=== PATIENT | female | born 1970 | race Caucasian/White ===

== ENCOUNTER 2016-04-24 11:36 | Day surgery (SDC) | payer BC ==
[2016-04-24] MEDS ORDERED: EPINEPHrine/PF 1 MG/1 ML (1:1,000) AMPULE IV ONE (12:00)
[2016-04-24] MEDS ORDERED: diphenhydrAMINE HCL 25 MG CAPSULE (FP) PO ONE (12:00)
[2016-04-24] MEDS ORDERED: ACETAMINOPHEN 325 MG TABLET (FP) PO ONE (12:00)
[2016-04-24] MEDS ORDERED: methylPREDNISolone NA SUCC 40 MG/1 ML VIAL IVPB ONE (12:00)
[2016-04-24 12:08] LABS: BASOPHIL 1.1 % (0-2.0); EOSINOPHIL 1.4 % (0-4.5); MCH 27.6 pg (25.7-33.7); MCHC 33.3 g/dl (32.0-36.0); MEAN CELL VOLUME 82.9 fl (80-96); MEAN PLT VOLUME 7.5 fl (7.5-11.1); NEUTROPHILS 50.4 % (42.8-82.8); PLATELET COUNT 382 K/MM3 (134-434); RDW 13.2 % (11.6-15.6); WHITE BLOOD COUNT 11.1 K/mm3 (4.0-10.0)
[2016-04-24] MEDS ORDERED: ACETAMINOPHEN 325 MG TABLET (FP) ONE (12:08)
[2016-04-24] MEDS ORDERED: EPINEPHrine/PF 1 MG/1 ML (1:1,000) AMPULE ONE (12:09)
[2016-04-24] MEDS ORDERED: methylPREDNISolone NA SUCC 40 MG/1 ML VIAL ONE (12:10)
[2016-04-24 12:29] VITALS: BMI 34.2
[2016-04-24] MEDS ORDERED: SODIUM CHLORIDE IVPB ONE (12:30)
[2016-04-24] MEDS ORDERED: INFLIXIMAB IVPB ONE (12:30)
[2016-04-24 12:45] LABS: C-REACTIVE PROTEIN 2.1 MG/DL (0.00-0.3); CALCIUM 9.6 mg/dL (8.5-10.1); CREATININE 0.9 mg/dL (0.55-1.02)
[2016-04-24 14:57] VITALS: TEMP 98.2
[2016-04-24 15:58] VITALS: BP 160/86; PULSE 84
== END 2016-04-24 15:58 | disposition home or self-care (01) ==
LOC: JINFUSION 11:36
PROVIDERS: ATTEND Internal Medicine Gastroenterology
DX: K51.90 Ulcerative colitis, unspecified, without complications (principal)
CPT/HCPCS: 96413; 96415; J1745; 36415; 80048; 85025; 86140

== ENCOUNTER 2016-06-26 08:28 | Day surgery (SDC) | payer BC ==
[2016-06-26 08:50] LABS: BASOPHIL 0.6 % (0-2.0); EOSINOPHIL 1.3 % (0-4.5); MCH 27.2 pg (25.7-33.7); MCHC 32.8 g/dl (32.0-36.0); MEAN CELL VOLUME 83.1 fl (80-96); MEAN PLT VOLUME 7.6 fl (7.5-11.1); NEUTROPHILS 47.3 % (42.8-82.8); PLATELET COUNT 349 K/MM3 (134-434); RDW 13.9 % (11.6-15.6); WHITE BLOOD COUNT 9.5 K/mm3 (4.0-10.0)
[2016-06-26] MEDS ORDERED: ACETAMINOPHEN 500 MG TABLET (FP) ONE (08:52)
[2016-06-26] MEDS ORDERED: diphenhydrAMINE HCL 25 MG CAPSULE (FP) PO ONE ×2 (08:52→09:15)
[2016-06-26] MEDS ORDERED: EPINEPHrine/PF 1 MG/1 ML (1:1,000) AMPULE IV PRN (09:08)
[2016-06-26] MEDS ORDERED: methylPREDNISolone NA SUCC 40 MG/1 ML VIAL IVPB PRN (09:09)
[2016-06-26] MEDS ORDERED: ACETAMINOPHEN 500 MG TABLET (FP) PO ONE (09:15)
[2016-06-26 09:16] LABS: CALCIUM 9.7 mg/dL (8.5-10.1); COCKROFT - GAULT 122.825; CREATININE 0.9 mg/dL (0.55-1.02)
[2016-06-26] MEDS ORDERED: SODIUM CHLORIDE IVPB ONE (09:45)
[2016-06-26] MEDS ORDERED: INFLIXIMAB IVPB ONE (09:45)
[2016-06-26 11:42] VITALS: TEMP 97.9
[2016-06-26 12:15] VITALS: BP 130/90; PULSE 86
== END 2016-06-26 12:15 | disposition home or self-care (01) ==
LOC: JCHEMO 08:28
PROVIDERS: ATTEND Internal Medicine Gastroenterology
DX: K51.90 Ulcerative colitis, unspecified, without complications (principal)
CPT/HCPCS: 96413; 96415; J1745; 36415; 80048; 85025; 86140

== ENCOUNTER 2016-08-27 08:35 | Day surgery (SDC) | payer BC ==
[~2016-08-27 08:35] MED LIST: SODIUM CHLORIDE 250 ML IV ONE
[2016-08-27] MEDS ORDERED: diphenhydrAMINE HCL 25 MG CAPSULE (FP) PO ONE ×2 (08:57→09:00)
[2016-08-27] MEDS ORDERED: ACETAMINOPHEN 500 MG TABLET (FP) ONE (08:57)
[2016-08-27] MEDS ORDERED: ACETAMINOPHEN 500 MG TABLET (FP) PO ONE (09:00)
[2016-08-27] MEDS ORDERED: EPINEPHrine/PF 1 MG/1 ML (1:1,000) AMPULE IV PRN (09:06)
[2016-08-27] MEDS ORDERED: methylPREDNISolone NA SUCC 40 MG/1 ML VIAL IVPB PRN (09:07)
[2016-08-27 09:08] LABS: BASOPHIL 0.7 % (0-2.0); EOSINOPHIL 1.6 % (0-4.5); MCH 28.4 pg (25.7-33.7); MCHC 33.7 g/dl (32.0-36.0); MEAN CELL VOLUME 84.3 fl (80-96); MEAN PLT VOLUME 7.9 fl (7.5-11.1); NEUTROPHILS 46.2 % (42.8-82.8); PLATELET COUNT 299 K/MM3 (134-434); RDW 13.5 % (11.6-15.6); WHITE BLOOD COUNT 8.7 K/mm3 (4.0-10.0)
[2016-08-27] MEDS ORDERED: SODIUM CHLORIDE IVPB ONE (09:30)
[2016-08-27] MEDS ORDERED: INFLIXIMAB IVPB ONE (09:30)
[2016-08-27 09:37] LABS: ANION GAP 8 (8-16); CALCIUM 9.5 mg/dL (8.5-10.1); CO2 29 mmol/L (21-32); CREATININE 0.9 mg/dL (0.55-1.02); GLUCOSE,RANDOM 101 mg/dL (74-106)
[2016-08-27 09:50] LABS: C-REACTIVE PROTEIN 2.3 MG/DL (0.00-0.3)
[2016-08-27 14:24] VITALS: BP 125/87; PULSE 83; TEMP 97.8
== END 2016-08-27 12:42 | disposition home or self-care (01) ==
LOC: JCHEMO 08:35
PROVIDERS: ATTEND Internal Medicine Gastroenterology
DX: K51.90 Ulcerative colitis, unspecified, without complications (principal)
CPT/HCPCS: 96413; 96415; J1745; 36415; 80048; 84703; 85025; 86140

== ENCOUNTER 2016-10-16 08:34 | Day surgery (SDC) | payer BC ==
[2016-10-16 08:58] LABS: BASOPHIL 0.6 % (0-2.0); EOSINOPHIL 1.7 % (0-4.5); MCH 28.3 pg (25.7-33.7); MCHC 33.6 g/dl (32.0-36.0); MEAN CELL VOLUME 84.4 fl (80-96); MEAN PLT VOLUME 7.8 fl (7.5-11.1); NEUTROPHILS 43.9 % (42.8-82.8); PLATELET COUNT 373 K/MM3 (134-434); RDW 13.6 % (11.6-15.6); WHITE BLOOD COUNT 9.1 K/mm3 (4.0-10.0)
[2016-10-16 09:15] LABS: ANION GAP 7 (8-16); CALCIUM 9.7 mg/dL (8.5-10.1); CO2 26 mmol/L (21-32); CREATININE 0.9 mg/dL (0.55-1.02); GLUCOSE,RANDOM 104 mg/dL (74-106)
[2016-10-16] MEDS ORDERED: EPINEPHrine/PF 1 MG/1 ML (1:1,000) AMPULE IV ONE (09:15)
[2016-10-16] MEDS ORDERED: methylPREDNISolone NA SUCC 40 MG/1 ML VIAL IVPB ONE (09:15)
[2016-10-16] MEDS ORDERED: diphenhydrAMINE HCL 25 MG CAPSULE (FP) PO ONE ×2 (09:15→09:30)
[2016-10-16] MEDS ORDERED: SODIUM CHLORIDE 250 ML IV ONE (09:15)
[2016-10-16] MEDS ORDERED: ACETAMINOPHEN 325 MG TABLET (FP) ONE (09:16)
[2016-10-16 09:26] LABS: C-REACTIVE PROTEIN 2.1 MG/DL (0.00-0.3)
[2016-10-16] MEDS ORDERED: ACETAMINOPHEN 325 MG TABLET (FP) PO ONE (09:30)
[2016-10-16] MEDS ORDERED: SODIUM CHLORIDE IVPB ONE (10:00)
[2016-10-16] MEDS ORDERED: INFLIXIMAB IVPB ONE (10:00)
[2016-10-16 11:36] VITALS: TEMP 98.6
[2016-10-16 12:10] VITALS: BP 130/80; PULSE 76
== END 2016-10-16 12:40 | disposition home or self-care (01) ==
LOC: JCHEMO 08:34
PROVIDERS: ATTEND Internal Medicine Gastroenterology
DX: K51.90 Ulcerative colitis, unspecified, without complications (principal)
CPT/HCPCS: 36415; 80048; 85025; 86140; 96413; 96415; J1745

== ENCOUNTER 2016-12-12 09:05 | Day surgery (SDC) | payer BC ==
[2016-12-12 09:54] LABS: BASOPHIL 0.6 % (0-2.0); EOSINOPHIL 1.7 % (0-4.5); MCH 27.6 pg (25.7-33.7); MCHC 32.9 g/dl (32.0-36.0); MEAN CELL VOLUME 83.9 fl (80-96); MEAN PLT VOLUME 7.9 fl (7.5-11.1); NEUTROPHILS 44.8 % (42.8-82.8); PLATELET COUNT 380 K/MM3 (134-434); RDW 13.3 % (11.6-15.6); WHITE BLOOD COUNT 8.2 K/mm3 (4.0-10.0)
[2016-12-12] MEDS ORDERED: EPINEPHrine/PF 1 MG/1 ML (1:1,000) AMPULE IVPUSH ONE (10:00)
[2016-12-12] MEDS ORDERED: methylPREDNISolone NA SUCC 40 MG/1 ML VIAL IVPUSH ONE (10:00)
[2016-12-12 10:09] LABS: ANION GAP 8 (8-16); CALCIUM 9.2 mg/dL (8.5-10.1); CO2 27 mmol/L (21-32); CREATININE 0.8 mg/dL (0.55-1.02); GLUCOSE,RANDOM 97 mg/dL (74-106)
[2016-12-12] MEDS ORDERED: diphenhydrAMINE HCL 25 MG CAPSULE (FP) PO ONE ×2 (10:18→10:30)
[2016-12-12] MEDS ORDERED: ACETAMINOPHEN 500 MG TABLET (FP) ONE (10:18)
[2016-12-12] MEDS ORDERED: ACETAMINOPHEN 325 MG TABLET (FP) PO ONE (10:30)
[2016-12-12 10:57] LABS: C-REACTIVE PROTEIN 2.4 MG/DL (0.00-0.3)
[2016-12-12] MEDS ORDERED: SODIUM CHLORIDE IVPB ONE (11:00)
[2016-12-12] MEDS ORDERED: INFLIXIMAB IVPB ONE (11:00)
[2016-12-12 14:12] VITALS: TEMP 98.6
[2016-12-12 14:18] VITALS: BP 135/74; PULSE 72
== END 2016-12-12 14:19 | disposition home or self-care (01) ==
LOC: JCHEMO 09:05
PROVIDERS: ATTEND Internal Medicine Gastroenterology
DX: K51.90 Ulcerative colitis, unspecified, without complications (principal)
CPT/HCPCS: 36415; 80048; 85025; 86140; 96413; 96415; J1745